=== PATIENT | male | born 1970 | race African-American/Black ===

== ENCOUNTER 2024-07-04 08:55 | Emergency (ER) | payer BC ==
[~2024-07-04] VITALS: Ht 188 cm; Wt 82.0 kg
[~2024-07-04 08:55] MED LIST: AMLO10TA80 PO; CIPR750T4 PO; FERR-63 PO; LOSA25TA26 PO; METR-167 PO
[2024-07-04 09:01] VITALS: O2SAT 99
[2024-07-04 09:05] VITALS: BP 137/66; PULSE 74; RESP 16; TEMP 98.7
== END 2024-07-04 09:24 | disposition home or self-care (01) ==
LOC: ER 09:07
DX: K62.5 Hemorrhage of anus and rectum (principal); Z79.899 Other long term (current) drug therapy
CPT/HCPCS: 99281